=== PATIENT | male | born 1955 | race Hispanic/Latino ===

== ENCOUNTER 2019-03-30 09:38 | Day surgery (SDC) | payer OTHER ==
--- NOTE | 2019-03-30 10:28 | Anesthesia Day of Surgery ---
Anesthesia Day of Surgery - Day of Surgery Patient Examined: Yes Patient H&P Reviewed: Yes Patient is NPO: Yes
[2019-03-30] MEDS ORDERED: ONDANSETRON 4 MG/2 ML INJ IV PRN (10:32)
--- NOTE | 2019-03-30 10:32 | Anesthesia Consultation ---
Anesthesia Consult and Med Hx Date of service: 03/30/19 - Airway Anesthetic Teeth Evaluation: Good ROM Head & Neck: Adequate Mental/Hyoid Distance: Adequate Mallampati Class: Class III Intubation Access Assessment: Probably Good - Pre-Operative Health Status ASA Pre-Surgery Classification: ASA2 Proposed Anesthetic Plan: General - Pulmonary Hx Smoking: Yes (STOPPED CIGARS 2012) Hx Sleep Apnea: No (ISMAEL PRE SCREEN HIGH RISK.) - Cardiovascular System Hx Hypertension: Yes (X 10 YRS. States he can climb two flights of stairs) - Gastrointestinal Hx Gastroesophageal Reflux Disease: Yes - Other Systems Hx Alcohol Use: Yes (1-2 DRINKS PER DAY) Hx Cancer: Yes (SKIN CA ONLY- REMOVED)
[2019-03-30] MEDS ORDERED: PANTOPRAZOLE 40 MG TAB PO NR (10:34)
[2019-03-30] MEDS ORDERED: LACTATED RINGERS 1,000 ML IV SCH (11:00)
[2019-03-30] MEDS ORDERED: fentaNYL 100 MCG/2 ML INJ ONE (15:38)
[2019-03-30] MEDS ORDERED: LIDOCAINE MPF (2%) 20 MG/1 ML VIAL 5 ML ONE (15:38)
[2019-03-30] MEDS ORDERED: PROPOFOL 200 MG/20 ML VIAL IV ONE (15:38)
[2019-03-30] MEDS ORDERED: WATER FOR IRRIG STERILE 2000 ML IR ONE ×2 (16:24)
[2019-03-30] MEDS ORDERED: WATER FOR IRRIG STERILE 1,500 ML BOTTLE IR ONE ×2 (16:25)
--- NOTE | 2019-03-30 17:00 | Post Operative Note ---
Date of procedure: 03/30/19 Pre-op diagnosis: huge bladder stone Post-op diagnosis: same Findings: same Procedure: cysto litotripsy Anesthesia: MICHAEL Surgeon: CHARLOTTE DE LOS SANTOS Estimated blood loss: minimal Pathology: list Specimen disposition: given to patient/family Condition: stable Disposition: PACU
--- NOTE | 2019-03-30 17:01 | Discharge Summary ---
Short Stay Discharge Plan Activity: other (no strainin g) Weight Bearing Status: Full Weight Bearing Diet: low fat Special Instructions: other (inc fluids ) Durable Medical Equipment Needed Upon Discharge: other (home with prather ) Follow up with: KATIE COLMENARES MD [Primary Care Provider] - 7 Days CHARLOTTE DE LOS SANTOS MD [Staff Physician] - 3 Days
--- NOTE | 2019-03-30 17:15 | Operative Report ---
PREOPERATIVE DIAGNOSIS: Huge bladder stone. POSTOPERATIVE DIAGNOSES: Huge bladder stone. PROCEDURE: Cystoscopy, lithotripsy with laser and LithoClast and evacuation of huge stone. SURGEON: Dr. Bull. ANESTHESIA: General. FINDINGS: This is a gentleman who presented with terminal hematuria. He has a large stone noted. He now presents for treatment. He did not want anything done with his prostate. DESCRIPTION OF PROCEDURE: The patient was brought to the operating room and placed on the operating table. Following induction of anesthesia, he was placed in lithotomy position, prepped and draped in usual sterile fashion. Cystourethroscopy showed this large stone. We do not have the [facility] anymore. They do not make the records in the electrode, so we had to use the laser at 560 fiber as well as the LithoClast. It took a lot longer, but eventually the stone broke into multiple pieces. We used intermittently the resectoscope to Ellik out the chips of stones. The patient tolerated the procedure well. All the chips were evacuated. There was some oozing and irritation from the prostate, which we left a 22 coude catheter. Cystogram showed good filling, good drainage with no extravasation. The patient tolerated the procedure well and brought to recovery room with a 22 Silva minimally pink-tinged in stable condition. JOB# [id number] IS[facility]/PAOLO
[2019-03-30] MEDS: fentaNYL 100 MCG/2 ML INJ IV PRN ×3 (17:31→18:05)
[2019-03-30] MEDS ORDERED: PHENYLEPHRINE/NS 1,000 MCG/10 ML SYRINGE (OR USE) IV ONE (18:00)
[2019-03-30] MEDS ORDERED: SUCCINYLCHOLINE CHLORIDE 200 MG/10 ML INJ MDV ONE (18:00)
[2019-03-30] MEDS ORDERED: ROCURONIUM 50 MG/5 ML INJ IV ONE (18:00)
[2019-03-30] MEDS ORDERED: FUROSEMIDE 40 MG/4 ML INJ ONE (18:00)
--- NOTE | 2019-03-30 18:03 | Fluoroscopy Report ---
FL cystogram static-OR INDICATION / CLINICAL INFORMATION: BLADDER STONE. COMPARISON: None available. FINDINGS: Initial fisheries officer view demonstrates a cystoscope. A bladder calculus was fragmented with a laser. A subse quent cystogram demonstrates a normal-appearing urinary bladder. No post void residual is seen. There is no evidence of extravasation of contrast. Fluoroscopy time: 14 seconds. Fluoroscopic images: 3. Signer Name: Mirza Hooks MD Signed: 03/30/2019 5:59 PM Workstation Name: [id number]
[2019-03-30] MEDS ORDERED: oxyCODONE /ACETAMINOPHEN 5-325MG TAB PO ONE (19:11)
[2019-03-30 20:18] VITALS: BP 167/86
--- NOTE | 2019-03-31 08:31 | Post Anesthesia Evaluation ---
- Post Anesthesia Evaluation Patient Participated: Yes Airway Patent: Yes Stable Respiratory Function: Yes Nausea/Vomiting: No Temp > 96.8F: Yes Pain Manageable: Yes Adequeate Hydration: Yes Anesthesia Complications: No Block Receding Appropriately: Not Applicable Patient on Ventilator: No
== END 2019-03-30 20:00 | disposition home or self-care (01) ==
LOC: OR 09:38
PROVIDERS: ATTEND Urology
DX: N21.0 Calculus in bladder (principal); R39.12 Poor urinary stream; I10 Essential (primary) hypertension; E78.00 Pure hypercholesterolemia, unspecified; K21.9 Gastro-esophageal reflux disease without esophagitis; Z90.49 Acquired absence of other specified parts of digestive tract; Z98.890 Other specified postprocedural states; Z72.89 Other problems related to lifestyle; Z88.0 Allergy status to penicillin; Z87.891 Personal history of nicotine dependence; Z79.899 Other long term (current) drug therapy
CPT/HCPCS: 52318; 74430; 93005; 93010; A4217; C1758; J0330; J1940; J1956; J2370; J2704; J3010; J7120; Q9967